=== PATIENT | male | born 1960 | race Caucasian/White ===

== ENCOUNTER 2020-02-07 14:24 | Inpatient (IN) ==
[2020-02-07] MEDS ORDERED: ONDANSETRON 4 MG/2 ML VIAL IV STA (15:01)
[2020-02-07 15:29] LABS: Basophils % 0.1 % (0.0-0.8); Eosinophils % 0.1 % (0.00-10.9); Hematocrit 43.4 VOL% (42.0-52.0); Hemoglobin 14.7 GM/DL (14.0-18.0); Immature Granulocytes Absolute 0.13 #; Lymphocytes # 0.7 10*3/uL (1.4-4.0); Lymphocytes % 5.4 % (21.2-54.2); Mean Corpuscular HGB Conc 33.9 GM/DL (32-36); Mean Corpuscular Volume 84.9 FL (87-102); Mean Platelet Volume 10.5 FL (9.6-12.0); Monocytes % 7.7 % (1.7-12.7); Neutrophils % 85.7 % (38.7-73.9); Platelet Count 167 T/CUMM (130-400); Red Blood Count 5.11 MC/CUMM (3.8-5.5); Red Cell Distribution Width 15.9 % (9.3-17.3); White Blood Count 12.6 T/CUMM (4-12)
[2020-02-07] MEDS ORDERED: LEVOFLOXACIN INJ 750 MG in PREMIX 1 EACH IV STA (15:54)
[2020-02-07 16:04] LABS: Albumin 3.7 G/DL (3.4-5.0); Bilirubin,Total 0.6 MG/DL (0.2-1.0); Calcium 8.9 MG/DL (8.5-10.1); Ferritin 665.5 ng/ml (26-388); Osmolality,Calculated 269.4 MOS/KG (273-304); Total Protein 8.5 G/DL (6.4-8.3)
[2020-02-07] MEDS ORDERED: SODIUM CHLORIDE 0.9% 1,000 ML IV STA (16:17)
[2020-02-07 16:42] LABS: ABG Base Excess -3.9 MMOL/L (-2.5-2.5); ABG Oxygen Saturation 90.1 % (95-100); ABG PCO2 32.2 MM HG (35-48); ABG PH 7.399 (7.35-7.45); ABG PO2 58.3 MM HG (80-95); ABG TCO2 17.3 MMOL/L (23-27)
[2020-02-07] MEDS ORDERED: ACETAMINOPHEN 325 MG TABLET PO PRN (18:02)
[2020-02-07] MEDS ORDERED: GLUCAGON 1 MG VIAL IM PRN (18:02)
[2020-02-07] MEDS ORDERED: DEXTROSE 50% 25 GM/50 ML VIAL IV PRN (18:02)
[2020-02-07] MEDS: ONDANSETRON 4 MG/2 ML VIAL IV PRN (18:55)
[2020-02-07 19:36] LABS: Band Neutrophils 1 % (0-10); Lymphocytes 6 % (20-55); Platelet Estimate Adequate; Segmented Neutrophils 89 % (50-85); Total Cells Counted 100
[2020-02-07 19:37] LABS: Anisocytosis Slight; Ovalocytes Few
[2020-02-07] MEDS: VANCOMYCIN INJ 1,500 MG in SODIUM CHLORIDE 0.9% 500 ML IV SCH (20:53)
[2020-02-07] MEDS: ENOXAPARIN 40 MG/0.4 ML SYRINGE SUBCUT SCH (21:25)
[2020-02-08 05:43] LABS: Basophils % 0.1 % (0.0-0.8); Eosinophils % 0.1 % (0.00-10.9); Hematocrit 36.2 VOL% (42.0-52.0); Immature Granulocytes % 1.1 %; Immature Granulocytes Absolute 0.09 #; Lymphocytes # 1.4 10*3/uL (1.4-4.0); Mean Corpuscular HGB Conc 34.5 GM/DL (32-36); Mean Corpuscular Volume 83.8 FL (87-102); Mean Platelet Volume 11.8 FL (9.6-12.0); Monocytes % 9.8 % (1.7-12.7); Neutrophils % 71.9 % (38.7-73.9); Platelet Count 141 T/CUMM (130-400); Red Blood Count 4.32 MC/CUMM (3.8-5.5); Red Cell Distribution Width 15.9 % (9.3-17.3)
[2020-02-08 05:44] LABS: Hemoglobin 12.5 GM/DL (14.0-18.0); White Blood Count 8.5 T/CUMM (4-12)
[2020-02-08 05:58] LABS: Albumin 2.8 G/DL (3.4-5.0); Bilirubin,Total 1.1 MG/DL (0.2-1.0); Calcium 8.1 MG/DL (8.5-10.1); Ferritin 538.3 ng/ml (26-388); Osmolality,Calculated 272.1 MOS/KG (273-304); Total Protein 6.8 G/DL (6.4-8.3)
[2020-02-08 06:07] LABS: Hypochromasia Slight; Microcytosis Slight; Platelet Estimate Adequate
[2020-02-08] MEDS: PANTOPRAZOLE 40 MG TABLET PO SCH (08:46)
[2020-02-08] MEDS: VANCOMYCIN INJ 1,500 MG in SODIUM CHLORIDE 0.9% 500 ML IV SCH ×2 (08:46→22:05)
[2020-02-08] MEDS: ONDANSETRON 4 MG/2 ML VIAL IV PRN (10:47)
[2020-02-08] MEDS: DEXAMETHASONE 4 MG TABLET PO SCH (11:57)
[2020-02-08] MEDS ORDERED: hydrOXYzine HCL 25 MG TABLET PO PRN (12:57)
[2020-02-08] MEDS: DIGOXIN 0.25 MG TABLET PO SCH (13:33)
[2020-02-08] MEDS: SERTRALINE 100 MG TABLET PO SCH (13:33)
[2020-02-08] MEDS: DESITIN 4OZ/NYSTATIN 15 GRAM MIXTURE PASTE TOP SCH ×2 (13:33→22:06)
[2020-02-08] MEDS ORDERED: LEVOFLOXACIN INJ 750 MG in PREMIX 1 EACH IV SCH (18:00)
[2020-02-08] MEDS: ENOXAPARIN 40 MG/0.4 ML SYRINGE SUBCUT SCH (22:05)
[2020-02-08] MEDS: FLUTICASONE/SALMETEROL 250-50 DISKUS 14 DOSE INH SCH (22:05)
[2020-02-08] MEDS: FERROUS GLUCONATE 324 MG TABLET PO SCH (22:05)
[2020-02-08] MEDS: FLUTICASONE 50 MCG NASAL SPRAY 16 GM BOTTLE BOTH NARES SCH (22:05)
[2020-02-08] MEDS: ALPRAZolam 0.5 MG TABLET PO SCH (22:06)
[2020-02-09 06:53] LABS: Basophils % 0.1 % (0.0-0.8); Hematocrit 34.6 VOL% (42.0-52.0); Hemoglobin 11.8 GM/DL (14.0-18.0); Immature Granulocytes % 1.2 %; Immature Granulocytes Absolute 0.08 #; Lymphocytes # 0.7 10*3/uL (1.4-4.0); Lymphocytes % 10.3 % (21.2-54.2); Mean Corpuscular HGB Conc 34.1 GM/DL (32-36); Mean Corpuscular Volume 83.2 FL (87-102); Mean Platelet Volume 11.2 FL (9.6-12.0); Monocytes % 9.6 % (1.7-12.7); Neutrophils % 78.8 % (38.7-73.9); Platelet Count 143 T/CUMM (130-400); Red Blood Count 4.16 MC/CUMM (3.8-5.5); Red Cell Distribution Width 15.8 % (9.3-17.3); White Blood Count 6.8 T/CUMM (4-12)
[2020-02-09 07:16] LABS: Calcium 8.5 MG/DL (8.5-10.1)
[2020-02-09] MEDS: FLUTICASONE 50 MCG NASAL SPRAY 16 GM BOTTLE BOTH NARES SCH ×2 (09:20→21:06)
[2020-02-09] MEDS: FLUTICASONE/SALMETEROL 250-50 DISKUS 14 DOSE INH SCH ×2 (09:20→21:06)
[2020-02-09] MEDS: VANCOMYCIN INJ 1,500 MG in SODIUM CHLORIDE 0.9% 500 ML IV SCH ×2 (09:20→21:05)
[2020-02-09] MEDS: ALPRAZolam 0.5 MG TABLET PO SCH ×2 (09:20→21:06)
[2020-02-09] MEDS: FERROUS GLUCONATE 324 MG TABLET PO SCH ×2 (09:20→21:06)
[2020-02-09] MEDS: SERTRALINE 100 MG TABLET PO SCH (09:20)
[2020-02-09] MEDS: PANTOPRAZOLE 40 MG TABLET PO SCH ×2 (09:20→10:56)
[2020-02-09] MEDS: DESITIN 4OZ/NYSTATIN 15 GRAM MIXTURE PASTE TOP SCH ×2 (09:20→21:06)
[2020-02-09] MEDS: DEXAMETHASONE 4 MG TABLET PO SCH (09:20)
[2020-02-09] MEDS: MONTELUKAST 10 MG TABLET PO SCH (09:20)
[2020-02-09] MEDS ORDERED: FLUCONAZOLE 200 MG TABLET PO ONE (11:22)
[2020-02-09] MEDS: DIGOXIN 0.25 MG TABLET PO SCH (13:57)
[2020-02-09] MEDS: ENOXAPARIN 40 MG/0.4 ML SYRINGE SUBCUT SCH (21:06)
[2020-02-10 06:43] LABS: Basophils % 0.1 % (0.0-0.8); Hematocrit 34.6 VOL% (42.0-52.0); Hemoglobin 11.6 GM/DL (14.0-18.0); Immature Granulocytes % 1.2 %; Immature Granulocytes Absolute 0.09 #; Lymphocytes # 0.6 10*3/uL (1.4-4.0); Mean Corpuscular HGB Conc 33.5 GM/DL (32-36); Mean Corpuscular Volume 83.6 FL (87-102); Mean Platelet Volume 11.4 FL (9.6-12.0); Monocytes % 6.7 % (1.7-12.7); Platelet Count 169 T/CUMM (130-400); Red Blood Count 4.14 MC/CUMM (3.8-5.5); Red Cell Distribution Width 15.9 % (9.3-17.3); White Blood Count 7.5 T/CUMM (4-12)
[2020-02-10 08:22] LABS: Calcium 8.4 MG/DL (8.5-10.1); Osmolality,Calculated 275.8 MOS/KG (273-304)
[2020-02-10] MEDS: DEXAMETHASONE 4 MG TABLET PO SCH (09:18)
[2020-02-10] MEDS: PANTOPRAZOLE 40 MG TABLET PO SCH ×2 (09:18→09:19)
[2020-02-10] MEDS: FLUTICASONE/SALMETEROL 250-50 DISKUS 14 DOSE INH SCH ×2 (09:18→21:44)
[2020-02-10] MEDS: VANCOMYCIN INJ 1,500 MG in SODIUM CHLORIDE 0.9% 500 ML IV SCH ×2 (09:18→21:44)
[2020-02-10] MEDS: ALPRAZolam 0.5 MG TABLET PO SCH ×2 (09:18→21:46)
[2020-02-10] MEDS: SERTRALINE 100 MG TABLET PO SCH (09:19)
[2020-02-10] MEDS: FLUTICASONE 50 MCG NASAL SPRAY 16 GM BOTTLE BOTH NARES SCH ×2 (09:19→21:46)
[2020-02-10] MEDS: FERROUS GLUCONATE 324 MG TABLET PO SCH ×2 (09:19→21:46)
[2020-02-10] MEDS: DESITIN 4OZ/NYSTATIN 15 GRAM MIXTURE PASTE TOP SCH ×2 (09:19→21:46)
[2020-02-10] MEDS: MONTELUKAST 10 MG TABLET PO SCH (09:19)
[2020-02-10] MEDS ORDERED: FLUCONAZOLE 200 MG TABLET PO ONE (11:00)
[2020-02-10] MEDS: DIGOXIN 0.25 MG TABLET PO SCH (12:19)
[2020-02-10] MEDS: ENOXAPARIN 40 MG/0.4 ML SYRINGE SUBCUT SCH (21:45)
[2020-02-11 07:02] LABS: Basophils % 0.2 % (0.0-0.8); Hematocrit 32.6 VOL% (42.0-52.0); Hemoglobin 11.1 GM/DL (14.0-18.0); Immature Granulocytes % 1.5 %; Lymphocytes # 0.7 10*3/uL (1.4-4.0); Lymphocytes % 11.1 % (21.2-54.2); Mean Corpuscular Volume 84.2 FL (87-102); Mean Platelet Volume 11.7 FL (9.6-12.0); Monocytes % 8.9 % (1.7-12.7); Neutrophils % 78.3 % (38.7-73.9); Platelet Count 161 T/CUMM (130-400); Red Blood Count 3.87 MC/CUMM (3.8-5.5); White Blood Count 6.7 T/CUMM (4-12)
[2020-02-11 07:04] LABS: Calcium 8.2 MG/DL (8.5-10.1); Osmolality,Calculated 276.7 MOS/KG (273-304)
[2020-02-11] MEDS: MONTELUKAST 10 MG TABLET PO SCH (09:18)
[2020-02-11] MEDS: DESITIN 4OZ/NYSTATIN 15 GRAM MIXTURE PASTE TOP SCH ×2 (09:18→20:55)
[2020-02-11] MEDS: FLUTICASONE 50 MCG NASAL SPRAY 16 GM BOTTLE BOTH NARES SCH ×2 (09:18→20:55)
[2020-02-11] MEDS: DEXAMETHASONE 4 MG TABLET PO SCH (09:18)
[2020-02-11] MEDS: VANCOMYCIN INJ 1,500 MG in SODIUM CHLORIDE 0.9% 500 ML IV SCH ×2 (09:18→20:55)
[2020-02-11] MEDS: ALPRAZolam 0.5 MG TABLET PO SCH ×2 (09:18→20:54)
[2020-02-11] MEDS: FERROUS GLUCONATE 324 MG TABLET PO SCH ×2 (09:18→20:54)
[2020-02-11] MEDS: PANTOPRAZOLE 40 MG TABLET PO SCH ×2 (09:18→09:34)
[2020-02-11] MEDS: FLUTICASONE/SALMETEROL 250-50 DISKUS 14 DOSE INH SCH ×2 (09:18→20:55)
[2020-02-11] MEDS: SERTRALINE 100 MG TABLET PO SCH (09:18)
[2020-02-11] MEDS ORDERED: FLUCONAZOLE 200 MG TABLET PO ONE (10:47)
[2020-02-11] MEDS: DIGOXIN 0.25 MG TABLET PO SCH (11:59)
[2020-02-11 12:47] LABS: Lymphocytes 10 % (20-55); Platelet Estimate Adequate; Segmented Neutrophils 83 % (50-85); Total Cells Counted 100
[2020-02-11] MEDS: LEVOFLOXACIN 500 MG TABLET PO SCH (13:07)
[2020-02-11] MEDS: ENOXAPARIN 40 MG/0.4 ML SYRINGE SUBCUT SCH (20:54)
[2020-02-12 06:20] LABS: Calcium 8.3 MG/DL (8.5-10.1); Osmolality,Calculated 279.5 MOS/KG (273-304)
[2020-02-12] MEDS: PANTOPRAZOLE 40 MG TABLET PO SCH ×2 (08:31→09:12)
[2020-02-12] MEDS: LEVOFLOXACIN 500 MG TABLET PO SCH (08:31)
[2020-02-12] MEDS: ALPRAZolam 0.5 MG TABLET PO SCH ×2 (08:31→21:03)
[2020-02-12] MEDS: SERTRALINE 100 MG TABLET PO SCH (08:32)
[2020-02-12] MEDS: DESITIN 4OZ/NYSTATIN 15 GRAM MIXTURE PASTE TOP SCH ×2 (08:32→21:03)
[2020-02-12] MEDS: FLUTICASONE/SALMETEROL 250-50 DISKUS 14 DOSE INH SCH ×2 (08:32→21:03)
[2020-02-12] MEDS: MONTELUKAST 10 MG TABLET PO SCH (08:32)
[2020-02-12] MEDS: DEXAMETHASONE 4 MG TABLET PO SCH (08:32)
[2020-02-12] MEDS: FERROUS GLUCONATE 324 MG TABLET PO SCH ×2 (08:32→21:03)
[2020-02-12] MEDS: VANCOMYCIN INJ 1,500 MG in SODIUM CHLORIDE 0.9% 500 ML IV SCH (09:11)
[2020-02-12] MEDS: FLUTICASONE 50 MCG NASAL SPRAY 16 GM BOTTLE BOTH NARES SCH ×2 (09:12→21:03)
[2020-02-12] MEDS ORDERED: TUBERCULIN SKIN TEST 0.1 ML SYRINGE INTRADERM ONE (11:58)
[2020-02-12] MEDS: DIGOXIN 0.25 MG TABLET PO SCH (14:51)
[2020-02-12] MEDS: ENOXAPARIN 40 MG/0.4 ML SYRINGE SUBCUT SCH (21:03)
[2020-02-13] MEDS: LEVOFLOXACIN 500 MG TABLET PO SCH (08:31)
[2020-02-13] MEDS: ALPRAZolam 0.5 MG TABLET PO SCH (08:31)
[2020-02-13] MEDS: DEXAMETHASONE 4 MG TABLET PO SCH (08:31)
[2020-02-13] MEDS: PANTOPRAZOLE 40 MG TABLET PO SCH ×2 (08:31→08:32)
[2020-02-13] MEDS: SERTRALINE 100 MG TABLET PO SCH (08:31)
[2020-02-13] MEDS: FERROUS GLUCONATE 324 MG TABLET PO SCH (08:31)
[2020-02-13] MEDS: MONTELUKAST 10 MG TABLET PO SCH (08:31)
[2020-02-13] MEDS: FLUTICASONE/SALMETEROL 250-50 DISKUS 14 DOSE INH SCH (08:32)
[2020-02-13] MEDS: FLUTICASONE 50 MCG NASAL SPRAY 16 GM BOTTLE BOTH NARES SCH (08:32)
[2020-02-13] MEDS: DESITIN 4OZ/NYSTATIN 15 GRAM MIXTURE PASTE TOP SCH (08:32)
[2020-02-13] MEDS ORDERED: INFLUENZA VIRUS VACCINE 0.5 ML SYRINGE IM ONE (11:25)
[2020-02-13] MEDS ORDERED: PNEUMOCOCCAL VACCINE (23 VALENT) 0.5 ML VIAL IM ONE (11:28)
[2020-02-13] MEDS ORDERED: ACETAMINOPHEN 500 MG TABLET PO ONE (11:52)
[2020-02-13 12:20] VITALS: BP 144/59
[2020-02-13] MEDS: DIGOXIN 0.25 MG TABLET PO SCH (13:02)
[2020-02-13] MEDS ORDERED: CLOTRIMAZOLE/BETAMETHASONE CREAM 15 GM TUBE TOP SCH (21:00)
== END 2020-02-13 14:30 | DRG 871 ==
LOC: EDUNIT# → EDBD → N.ED 14:24 → SUATTDRO 18:02 → N.EDINP 18:02 → N.2E 19:42
PROVIDERS: ADMIT Internal Medicine; ATTEND Internal Medicine

== ENCOUNTER 2020-07-02 16:26 | Inpatient (IN) ==
[2020-07-02] MEDS ORDERED: SODIUM CHLORIDE 0.9% 1,000 ML IV STA (16:54)
[2020-07-02 17:09] LABS: Basophils # 0.1 10*3/uL (0.0-0.2); Basophils % 0.5 % (0.0-0.8); Eosinophils # 0.3 10*3/uL (0.0-0.87); Eosinophils % 1.2 % (0.00-10.9); Hematocrit 37.9 VOL% (42.0-52.0); Hemoglobin 12.1 GM/DL (14.0-18.0); Immature Granulocytes % 5.2 %; Immature Granulocytes Absolute 1.12 #; Lymphocytes # 2.8 10*3/uL (1.4-4.0); Lymphocytes % 12.9 % (21.2-54.2); Mean Corpuscular HGB Conc 31.9 GM/DL (32-36); Mean Corpuscular Volume 94.8 FL (87-102); Mean Platelet Volume 10.5 FL (9.6-12.0); Monocytes % 8.1 % (1.7-12.7); Neutrophils % 72.1 % (38.7-73.9); Platelet Count 246 T/CUMM (130-400); Red Cell Distribution Width 14.3 % (9.3-17.3); White Blood Count 21.4 T/CUMM (4-12)
[2020-07-02] MEDS ORDERED: VANCOMYCIN INJ 1,000 MG in SODIUM CHLORIDE 0.9% 250 ML IV STA (17:25)
[2020-07-02 17:26] LABS: Alanine Aminotransferase 13 U/L (16-61); Albumin 3.4 G/DL (3.4-5.0); Alkaline Phosphatase 96 U/L (45-117); Aspartate Amino Transferase 15 U/L (0-37); Bilirubin,Total < 0.39 MG/DL (0.2-1.0); Blood Urea Nitrogen 52 MG/DL (7-18); Calcium 8.8 MG/DL (8.5-10.1); Carbon Dioxide 21 MMOL/L (21-32); Estimated Glom Filtration Rate 16 ML/MIN; Glucose 87 MG/DL (74-106); Osmolality,Calculated 280.2 MOS/KG (273-304); Potassium 4.7 MMOL/L (3.5-5.1); Sodium 134 MMOL/L (136-145); Total Protein 7.3 G/DL (6.4-8.2)
[2020-07-02] MEDS ORDERED: SODIUM CHLORIDE 0.9% 3,100 ML IV ONE (17:37)
[2020-07-02 17:52] LABS: Band Neutrophils 1 % (0-10); Eosinophils 1 % (0-10); Lymphocytes 10 % (20-55); Platelet Estimate Normal; Segmented Neutrophils 80 % (50-85); Total Cells Counted 100
[2020-07-02] MEDS ORDERED: GLUCAGON 1 MG VIAL IM PRN (18:00)
[2020-07-02] MEDS ORDERED: ALBUTEROL 2.5 MG/3 ML NEB RESP TX PRN (18:00)
[2020-07-02] MEDS ORDERED: ONDANSETRON 4 MG/2 ML VIAL IV PRN (18:00)
[2020-07-02] MEDS ORDERED: DEXTROSE 50% 25 GM/50 ML VIAL IV PRN (18:00)
[2020-07-02] MEDS ORDERED: PANTOPRAZOLE 40 MG VIAL IV SCH (18:00)
[2020-07-02] MEDS ORDERED: MORPHINE 4 MG/1 ML VIAL IV PRN (18:00)
[2020-07-02] MEDS ORDERED: HYDROCORTISONE 100 MG VIAL IV STA (18:43)
[2020-07-02] MEDS ORDERED: FLUCONAZOLE INJ 400 MG/200 ML PREMIX IV ONE (21:00)
[2020-07-02] MEDS: LACTATED RINGERS 1,000 ML IV SCH (21:05)
[2020-07-02] MEDS: metroNIDAZOLE INJ 500 MG in PREMIX 1 EACH IV SCH (21:10)
[2020-07-02] MEDS: ENOXAPARIN 30 MG/0.3 ML SYRINGE SUBCUT SCH (21:22)
[2020-07-02] MEDS: MEROPENEM 500 MG in SODIUM CHLORIDE 0.9% 100 ML IV SCH (21:22)
[2020-07-02] MEDS: INSULIN LISPRO 100 UNIT/ML SUBCUT SCH (21:31)
[2020-07-02] MEDS: NOREPINEPHRINE 8 MG in SODIUM CHLORIDE 0.9% 242 ML IV SCH (22:26)
[2020-07-02 23:24] LABS: Bilirubin,Urine Negative (Negative); Blood, Urine Negative (Negative); Glucose,Urine (UA) Negative (Negative); Hyaline Casts,Urine 18 /LPF (0-3); Ketones,Urine Negative (Negative); Mucus,Urine Occasional /LPF (Occasional); Nitrite,Urine Negative (Negative); Protein,Urine Negative; RBC,Urine 1 /HPF (0-4); Squamous Epithelial Cell,Urine Occasional /HPF (0-10); Urine Appearance Slightly Hazy (Clear); Urine Color Yellow (Yellow); Urine Specific Gravity 1.008 (1.001-1.035); Urine Urobilinogen < 2.0 EU/DL (0.2-1.0)
[2020-07-02] MEDS: MUPIROCIN 2% OINT 22 GM TUBE TOP SCH (23:36)
[2020-07-03] MEDS: LACTATED RINGERS 1,000 ML IV SCH ×3 (00:07→06:59)
[2020-07-03] MEDS: INSULIN LISPRO 100 UNIT/ML SUBCUT SCH ×7 (00:07→23:48)
[2020-07-03] MEDS: metroNIDAZOLE INJ 500 MG in PREMIX 1 EACH IV SCH ×4 (02:50→20:55)
[2020-07-03] MEDS ORDERED: HYDROCORTISONE 100 MG VIAL IV SCH (03:00)
[2020-07-03 05:01] LABS: Basophils # 0.1 10*3/uL (0.0-0.2); Basophils % 0.3 % (0.0-0.8); Eosinophils % 0.1 % (0.00-10.9); Hematocrit 33.1 VOL% (42.0-52.0); Hemoglobin 10.5 GM/DL (14.0-18.0); Immature Granulocytes % 4.4 %; Immature Granulocytes Absolute 0.63 #; Lymphocytes # 0.6 10*3/uL (1.4-4.0); Lymphocytes % 4.2 % (21.2-54.2); Mean Corpuscular HGB Conc 31.7 GM/DL (32-36); Mean Corpuscular Volume 95.4 FL (87-102); Mean Platelet Volume 10.3 FL (9.6-12.0); Monocytes % 2.4 % (1.7-12.7); Neutrophils % 88.6 % (38.7-73.9); Platelet Count 175 T/CUMM (130-400); Red Blood Count 3.47 MC/CUMM (3.8-5.5); Red Cell Distribution Width 14.1 % (9.3-17.3); White Blood Count 14.4 T/CUMM (4-12)
[2020-07-03 05:14] LABS: PT Patient Result 11.4 SECS (9.8-11.9)
[2020-07-03 05:26] LABS: Hypochromasia Slight; Lymphocytes 2 % (20-55); Microcytosis Slight; Platelet Estimate Adequate; Segmented Neutrophils 96 % (50-85); Total Cells Counted 100
[2020-07-03 05:28] LABS: Albumin 2.6 G/DL (3.4-5.0); Bilirubin,Total 0.7 MG/DL (0.2-1.0); Calcium 8.3 MG/DL (8.5-10.1); Osmolality,Calculated 287.7 MOS/KG (273-304); Potassium 5.4 MMOL/L (3.5-5.1); Thyroid Stimulating Hormone 0.594 uIU/ml (0.358-3.74)
[2020-07-03] MEDS: FLUCONAZOLE INJ 200 MG/100 ML PREMIX IV SCH (08:30)
[2020-07-03] MEDS: HYDROCORTISONE 10 MG TABLET PO SCH ×2 (08:31→20:27)
[2020-07-03] MEDS: MUPIROCIN 2% OINT 22 GM TUBE TOP SCH ×3 (08:31→20:27)
[2020-07-03] MEDS: PANTOPRAZOLE 40 MG TABLET PO SCH (08:31)
[2020-07-03] MEDS: DIGOXIN 0.25 MG TABLET PO SCH (08:31)
[2020-07-03] MEDS: FLUTICASONE/SALMETEROL 250-50 DISKUS 14 DOSE INH SCH ×2 (08:32→20:27)
[2020-07-03] MEDS: NOREPINEPHRINE 8 MG in SODIUM CHLORIDE 0.9% 242 ML IV SCH (18:06)
[2020-07-03] MEDS: MEROPENEM 500 MG in SODIUM CHLORIDE 0.9% 100 ML IV SCH (20:15)
[2020-07-03] MEDS: ENOXAPARIN 30 MG/0.3 ML SYRINGE SUBCUT SCH (20:27)
[2020-07-03] MEDS: ALPRAZolam 0.5 MG TABLET PO SCH (20:28)
[2020-07-03] MEDS: SERTRALINE 100 MG TABLET PO SCH (20:28)
[2020-07-04] MEDS: metroNIDAZOLE INJ 500 MG in PREMIX 1 EACH IV SCH ×4 (02:30→20:54)
[2020-07-04] MEDS: INSULIN LISPRO 100 UNIT/ML SUBCUT SCH ×2 (03:43→08:18)
[2020-07-04 04:30] LABS: Basophils % 0.2 % (0.0-0.8); Eosinophils # 0.1 10*3/uL (0.0-0.87); Eosinophils % 1.1 % (0.00-10.9); Hematocrit 31.3 VOL% (42.0-52.0); Hemoglobin 9.9 GM/DL (14.0-18.0); Immature Granulocytes % 3.9 %; Immature Granulocytes Absolute 0.42 #; Lymphocytes % 9.5 % (21.2-54.2); Mean Corpuscular HGB Conc 31.6 GM/DL (32-36); Mean Corpuscular Volume 95.4 FL (87-102); Mean Platelet Volume 10.4 FL (9.6-12.0); Monocytes % 6.7 % (1.7-12.7); Neutrophils % 78.6 % (38.7-73.9); Platelet Count 186 T/CUMM (130-400); Red Blood Count 3.28 MC/CUMM (3.8-5.5); Red Cell Distribution Width 14.1 % (9.3-17.3); White Blood Count 10.7 T/CUMM (4-12)
[2020-07-04 04:53] LABS: Calcium 8.2 MG/DL (8.5-10.1); Osmolality,Calculated 283.5 MOS/KG (273-304); Potassium 3.9 MMOL/L (3.5-5.1)
[2020-07-04] MEDS: DIGOXIN 0.25 MG TABLET PO SCH (08:19)
[2020-07-04] MEDS: PANTOPRAZOLE 40 MG TABLET PO SCH (08:19)
[2020-07-04] MEDS: HYDROCORTISONE 10 MG TABLET PO SCH ×2 (08:19→20:37)
[2020-07-04] MEDS: FLUTICASONE/SALMETEROL 250-50 DISKUS 14 DOSE INH SCH ×2 (08:19→20:35)
[2020-07-04] MEDS: MUPIROCIN 2% OINT 22 GM TUBE TOP SCH (08:25)
[2020-07-04] MEDS: FLUCONAZOLE INJ 200 MG/100 ML PREMIX IV SCH (10:13)
[2020-07-04] MEDS: HYDROCORTISONE 2.5% CREAM 30 GM TUBE TOP SCH (20:36)
[2020-07-04] MEDS: ZINC OXIDE PASTE 113 GM TUBE TOP SCH (20:36)
[2020-07-04] MEDS: KETOCONAZOLE 2% CREAM 30 GM TUBE TOP SCH (20:36)
[2020-07-04] MEDS: ALPRAZolam 0.5 MG TABLET PO SCH (20:37)
[2020-07-04] MEDS: SERTRALINE 100 MG TABLET PO SCH (20:37)
[2020-07-04] MEDS: MEROPENEM 500 MG in SODIUM CHLORIDE 0.9% 100 ML IV SCH (20:38)
[2020-07-04] MEDS: ENOXAPARIN 30 MG/0.3 ML SYRINGE SUBCUT SCH (20:51)
[2020-07-05] MEDS: metroNIDAZOLE INJ 500 MG in PREMIX 1 EACH IV SCH ×2 (02:26→08:30)
[2020-07-05 04:42] LABS: Calcium 8.4 MG/DL (8.5-10.1); Osmolality,Calculated 280.4 MOS/KG (273-304); Potassium 3.7 MMOL/L (3.5-5.1)
[2020-07-05] MEDS: FLUTICASONE/SALMETEROL 250-50 DISKUS 14 DOSE INH SCH (08:25)
[2020-07-05] MEDS: DIGOXIN 0.25 MG TABLET PO SCH (08:25)
[2020-07-05] MEDS: PANTOPRAZOLE 40 MG TABLET PO SCH (08:25)
[2020-07-05] MEDS: FLUCONAZOLE INJ 200 MG/100 ML PREMIX IV SCH (08:30)
[2020-07-05] MEDS: KETOCONAZOLE 2% CREAM 30 GM TUBE TOP SCH (09:35)
[2020-07-05] MEDS: ZINC OXIDE PASTE 113 GM TUBE TOP SCH (09:35)
[2020-07-05] MEDS: HYDROCORTISONE 2.5% CREAM 30 GM TUBE TOP SCH (09:35)
[2020-07-05 12:32] VITALS: BP 123/87
[2020-07-05 20:56] LABS: Herpes Source GROIN
== END 2020-07-05 13:05 | disposition home or self-care (01) | DRG 871 ==
LOC: EDUNIT# → EDBD → N.ED 16:26 → SUATTDRO 18:00 → N.EDINP 18:00 → N.ICU 19:17
PROVIDERS: ADMIT Internal Medicine; ATTEND Internal Medicine Geriatric Medicine

== ENCOUNTER 2021-02-05 13:32 | Inpatient (IN) ==
[2021-02-05 14:16] LABS: Basophils # 0.1 10*3/uL (0.0-0.2); Basophils % 0.4 % (0.0-0.8); Eosinophils # 0.1 10*3/uL (0.0-0.87); Eosinophils % 0.8 % (0.00-10.9); Hematocrit 41.1 VOL% (42.0-52.0); Hemoglobin 13.8 GM/DL (14.0-18.0); Immature Granulocytes % 4.5 %; Immature Granulocytes Absolute 0.71 #; Lymphocytes # 1.7 10*3/uL (1.4-4.0); Lymphocytes % 10.5 % (21.2-54.2); Mean Corpuscular HGB Conc 33.6 GM/DL (32-36); Mean Corpuscular Volume 85.6 FL (87-102); Mean Platelet Volume 10.2 FL (9.6-12.0); Monocytes % 7.5 % (1.7-12.7); Neutrophils % 76.3 % (38.7-73.9); Platelet Count 329 T/CUMM (130-400); Red Cell Distribution Width 14.7 % (9.3-17.3); White Blood Count 15.9 T/CUMM (4-12)
[2021-02-05 14:37] LABS: Albumin 3.9 G/DL (3.4-5.0); Bilirubin,Total 0.6 MG/DL (0.20-1.00); Calcium 9.1 MG/DL (8.5-10.1); Osmolality,Calculated 271.2 MOS/KG (273-304); Potassium 4.8 MMOL/L (3.5-5.1); Total Protein 7.7 G/DL (6.4-8.2)
[2021-02-05 14:39] LABS: Band Neutrophils 3 % (0-10); Lymphocytes 11 % (20-55); Metamyelocytes 2 %; Myelocytes 1 %; Segmented Neutrophils 78 % (50-85); Total Cells Counted 100
[2021-02-05 14:40] LABS: Anisocytosis Slight; Microcytosis Slight; Platelet Estimate Normal
[2021-02-05] MEDS ORDERED: SODIUM CHLORIDE 0.9% 500 ML IV STA (16:53)
[2021-02-05] MEDS ORDERED: GLUCAGON 1 MG VIAL IM PRN (17:54)
[2021-02-05] MEDS ORDERED: ALBUTEROL 2.5 MG/3 ML NEB RESP TX PRN (17:54)
[2021-02-05] MEDS ORDERED: ALUMINUM/MAGNES/SIMETH MAX STR 30 ML UDCUP PO PRN (17:54)
[2021-02-05] MEDS ORDERED: DOCUSATE SODIUM 100 MG CAPSULE PO PRN (17:54)
[2021-02-05] MEDS ORDERED: SODIUM CHLORIDE 0.9% 1,000 ML IV SCH (18:00)
[2021-02-05] MEDS ORDERED: DEXTROSE 50% 25 GM/50 ML SYRINGE IV PRN (18:25)
[2021-02-05 19:27] LABS: Bilirubin,Urine Negative (Negative); Blood, Urine Negative (Negative); Glucose,Urine (UA) Negative (Negative); Hyaline Casts,Urine 31 /LPF (0-3); Ketones,Urine Negative (Negative); Mucus,Urine Occasional /LPF (Occasional); Nitrite,Urine Negative (Negative); Protein,Urine Negative; RBC,Urine 2 /HPF (0-4); Urine Appearance CLEAR (Clear); Urine Color Yellow (Yellow); Urine Specific Gravity 1.006 (1.001-1.035); Urine Urobilinogen < 2.0 EU/DL (0.2-1.0)
[2021-02-05] MEDS: ALBUTEROL/IPRATROPIUM 3 ML NEB RESP TX SCH (19:39)
[2021-02-05] MEDS: ENOXAPARIN 40 MG/0.4 ML SYRINGE SUBCUT SCH (20:09)
[2021-02-06] MEDS: ALBUTEROL/IPRATROPIUM 3 ML NEB RESP TX SCH ×5 (00:32→20:04)
[2021-02-06] MEDS ORDERED: INFLUENZA VIRUS VACCINE 0.5 ML SYRINGE IM ONE (05:55)
[2021-02-06 06:53] LABS: Basophils # 0.1 10*3/uL (0.0-0.2); Basophils % 0.7 % (0.0-0.8); Eosinophils # 0.1 10*3/uL (0.0-0.87); Hematocrit 36.9 VOL% (42.0-52.0); Immature Granulocytes Absolute 0.55 #; Lymphocytes # 2.7 10*3/uL (1.4-4.0); Lymphocytes % 20.1 % (21.2-54.2); Mean Corpuscular HGB Conc 32.5 GM/DL (32-36); Mean Corpuscular Volume 88.7 FL (87-102); Mean Platelet Volume 10.6 FL (9.6-12.0); Monocytes % 9.3 % (1.7-12.7); Neutrophils % 64.9 % (38.7-73.9); Platelet Count 287 T/CUMM (130-400); Red Blood Count 4.16 MC/CUMM (3.8-5.5); Red Cell Distribution Width 14.8 % (9.3-17.3); White Blood Count 13.6 T/CUMM (4-12)
[2021-02-06 07:19] LABS: Hypochromasia Slight; Lymphocytes 21 % (20-55); Microcytosis Slight; Platelet Estimate Adequate; Segmented Neutrophils 74 % (50-85); Total Cells Counted 100
[2021-02-06 07:31] LABS: Calcium 8.5 MG/DL (8.5-10.1); Risk Ratio 5.09; Thyroid Stimulating Hormone 1.9 uIU/ml (0.358-3.74); VLDL Cholesterol 44.4 MG/DL
[2021-02-06] MEDS ORDERED: HydrOXYzine PAMOATE 25 MG CAPSULE PO PRN (07:40)
[2021-02-06] MEDS: carvediloL 3.125 MG TABLET PO SCH (08:33)
[2021-02-06] MEDS: PANTOPRAZOLE 40 MG TABLET PO SCH ×2 (08:33→16:38)
[2021-02-06] MEDS: LOSARTAN 25 MG TABLET PO SCH (08:33)
[2021-02-06] MEDS: FERROUS GLUCONATE 324 MG TABLET PO SCH ×2 (08:33→16:38)
[2021-02-06] MEDS: MONTELUKAST 10 MG TABLET PO SCH (08:33)
[2021-02-06] MEDS: ALPRAZolam 0.5 MG TABLET PO SCH ×2 (08:33→22:31)
[2021-02-06] MEDS ORDERED: ALBUTEROL 2.5 MG/3 ML NEB RESP TX SCH (09:00)
[2021-02-06] MEDS ORDERED: PANTOPRAZOLE 40 MG TABLET PO SCH (09:00)
[2021-02-06] MEDS ORDERED: DIGOXIN 0.125 MG TABLET PO SCH (09:00)
[2021-02-06] MEDS ORDERED: MONTELUKAST 10 MG TABLET PO SCH (09:00)
[2021-02-06] MEDS: POTASSIUM CHLORIDE 10 MEQ TABLET PO SCH (11:36)
[2021-02-06] MEDS: MEROPENEM 500 MG in SODIUM CHLORIDE 0.9% 100 ML IV SCH ×2 (11:36→17:52)
[2021-02-06] MEDS: DIGOXIN 0.125 MG TABLET PO SCH (11:37)
[2021-02-06] MEDS ORDERED: FUROSEMIDE 40 MG TABLET PO SCH (16:00)
[2021-02-06] MEDS: GABAPENTIN 100 MG CAPSULE PO SCH ×2 (16:38→22:31)
[2021-02-06] MEDS: ENOXAPARIN 40 MG/0.4 ML SYRINGE SUBCUT SCH (17:52)
[2021-02-06] MEDS: SERTRALINE 25 MG TABLET PO SCH (22:31)
[2021-02-07] MEDS: ALBUTEROL/IPRATROPIUM 3 ML NEB RESP TX SCH ×2 (00:55→08:08)
[2021-02-07] MEDS: MEROPENEM 500 MG in SODIUM CHLORIDE 0.9% 100 ML IV SCH ×3 (01:44→17:37)
[2021-02-07 06:11] LABS: Basophils # 0.1 10*3/uL (0.0-0.2); Basophils % 0.8 % (0.0-0.8); Eosinophils # 0.2 10*3/uL (0.0-0.87); Eosinophils % 1.9 % (0.00-10.9); Hematocrit 35.5 VOL% (42.0-52.0); Hemoglobin 11.6 GM/DL (14.0-18.0); Immature Granulocytes % 5.3 %; Immature Granulocytes Absolute 0.52 #; Lymphocytes # 2.1 10*3/uL (1.4-4.0); Lymphocytes % 21.8 % (21.2-54.2); Mean Corpuscular HGB Conc 32.7 GM/DL (32-36); Mean Platelet Volume 10.3 FL (9.6-12.0); Monocytes % 9.5 % (1.7-12.7); Neutrophils % 60.7 % (38.7-73.9); Platelet Count 250 T/CUMM (130-400); Red Blood Count 3.99 MC/CUMM (3.8-5.5); Red Cell Distribution Width 14.8 % (9.3-17.3); White Blood Count 9.8 T/CUMM (4-12)
[2021-02-07 06:28] LABS: Calcium 9.1 MG/DL (8.5-10.1); Osmolality,Calculated 277.7 MOS/KG (273-304)
[2021-02-07 06:41] LABS: Anisocytosis 1+; Atypical Lymphocytes Few; Band Neutrophils 5 % (0-10); Eosinophils 2 % (0-10); Lymphocytes 27 % (20-55); Platelet Estimate Normal; Segmented Neutrophils 60 % (50-85); Total Cells Counted 100
[2021-02-07] MEDS: ALPRAZolam 0.5 MG TABLET PO SCH ×2 (08:15→20:26)
[2021-02-07] MEDS: FERROUS GLUCONATE 324 MG TABLET PO SCH ×2 (08:15→16:51)
[2021-02-07] MEDS: carvediloL 3.125 MG TABLET PO SCH (08:15)
[2021-02-07] MEDS: POTASSIUM CHLORIDE 10 MEQ TABLET PO SCH (08:15)
[2021-02-07] MEDS: GABAPENTIN 100 MG CAPSULE PO SCH ×3 (08:15→20:26)
[2021-02-07] MEDS: MONTELUKAST 10 MG TABLET PO SCH (08:15)
[2021-02-07] MEDS: LOSARTAN 25 MG TABLET PO SCH (08:16)
[2021-02-07] MEDS: PANTOPRAZOLE 40 MG TABLET PO SCH ×2 (08:16→16:50)
[2021-02-07] MEDS: DIGOXIN 0.125 MG TABLET PO SCH (08:16)
[2021-02-07] MEDS ORDERED: IPRATROPIUM 500 MCG/2.5 ML NEB RESP TX PRN (09:24)
[2021-02-07] MEDS: IPRATROPIUM 500 MCG/2.5 ML NEB RESP TX SCH ×2 (14:00→23:55)
[2021-02-07] MEDS: ENOXAPARIN 40 MG/0.4 ML SYRINGE SUBCUT SCH (17:36)
[2021-02-07] MEDS: SERTRALINE 25 MG TABLET PO SCH (20:26)
[2021-02-07] MEDS: ATORVASTATIN 40 MG TABLET PO SCH (20:30)
[2021-02-07] MEDS: ACETAMINOPHEN 325 MG TABLET PO PRN (22:53)
[2021-02-08] MEDS: MEROPENEM 500 MG in SODIUM CHLORIDE 0.9% 100 ML IV SCH ×3 (02:45→19:10)
[2021-02-08] MEDS: ACETAMINOPHEN 325 MG TABLET PO PRN ×2 (04:06→20:40)
[2021-02-08 05:36] LABS: Basophils # 0.1 10*3/uL (0.0-0.2); Basophils % 0.5 % (0.0-0.8); Eosinophils # 0.2 10*3/uL (0.0-0.87); Eosinophils % 1.9 % (0.00-10.9); Hemoglobin 12.2 GM/DL (14.0-18.0); Immature Granulocytes % 5.1 %; Immature Granulocytes Absolute 0.58 #; Lymphocytes # 2.2 10*3/uL (1.4-4.0); Lymphocytes % 19.3 % (21.2-54.2); Mean Corpuscular Volume 88.1 FL (87-102); Mean Platelet Volume 10.2 FL (9.6-12.0); Monocytes % 8.9 % (1.7-12.7); Neutrophils % 64.3 % (38.7-73.9); Platelet Count 279 T/CUMM (130-400); Red Cell Distribution Width 14.5 % (9.3-17.3); White Blood Count 11.5 T/CUMM (4-12)
[2021-02-08 06:11] LABS: Calcium 8.8 MG/DL (8.5-10.1); Osmolality,Calculated 275.8 MOS/KG (273-304); Potassium 4.3 MMOL/L (3.5-5.1)
[2021-02-08 06:12] LABS: Albumin 3.4 G/DL (3.4-5.0); Bilirubin,Direct 0.12 MG/DL (0.0-0.20); Bilirubin,Indirect 1.5 MG/DL (0.0-1.0); Bilirubin,Total 1.6 MG/DL (0.20-1.00); Total Protein 7.6 G/DL (6.4-8.2)
[2021-02-08 06:16] LABS: Eosinophils 1 % (0-10); Lymphocytes 23 % (20-55); Platelet Estimate Normal; Segmented Neutrophils 67 % (50-85); Total Cells Counted 100
[2021-02-08 06:17] LABS: Microcytosis 1+
[2021-02-08] MEDS: PANTOPRAZOLE 40 MG TABLET PO SCH (06:57)
[2021-02-08] MEDS: IPRATROPIUM 500 MCG/2.5 ML NEB RESP TX SCH ×2 (07:10→14:16)
[2021-02-08] MEDS: MONTELUKAST 10 MG TABLET PO SCH (08:45)
[2021-02-08] MEDS: GABAPENTIN 100 MG CAPSULE PO SCH ×3 (08:48→20:43)
[2021-02-08] MEDS: ALPRAZolam 0.5 MG TABLET PO SCH ×2 (08:49→20:39)
[2021-02-08] MEDS: LOSARTAN 25 MG TABLET PO SCH (08:50)
[2021-02-08] MEDS: carvediloL 3.125 MG TABLET PO SCH (08:50)
[2021-02-08] MEDS: FERROUS GLUCONATE 324 MG TABLET PO SCH ×2 (08:51→19:06)
[2021-02-08] MEDS: DIGOXIN 0.125 MG TABLET PO SCH (08:51)
[2021-02-08] MEDS: POTASSIUM CHLORIDE 10 MEQ TABLET PO SCH (08:51)
[2021-02-08] MEDS: OMEPRAZOLE ODT 20 MG TABLET PO SCH (15:57)
[2021-02-08] MEDS: ENOXAPARIN 40 MG/0.4 ML SYRINGE SUBCUT SCH (19:07)
[2021-02-08] MEDS: ATORVASTATIN 40 MG TABLET PO SCH (20:39)
[2021-02-08] MEDS: SODIUM BICARBONATE 650 MG TABLET PO SCH (20:40)
[2021-02-08] MEDS: SERTRALINE 25 MG TABLET PO SCH (20:40)
[2021-02-09] MEDS: IPRATROPIUM 500 MCG/2.5 ML NEB RESP TX SCH ×4 (00:22→23:19)
[2021-02-09] MEDS: ACETAMINOPHEN 325 MG TABLET PO PRN (00:33)
[2021-02-09 13:16] LABS: Calcium 8.9 MG/DL (8.5-10.1); Osmolality,Calculated 269.2 MOS/KG (273-304); Potassium 3.5 MMOL/L (3.5-5.1)
[2021-02-09 13:30] LABS: Basophils # 0.1 10*3/uL (0.0-0.2); Basophils % 0.5 % (0.0-0.8); Eosinophils # 0.3 10*3/uL (0.0-0.87); Eosinophils % 2.4 % (0.00-10.9); Hemoglobin 11.3 GM/DL (14.0-18.0); Immature Granulocytes % 4.8 %; Lymphocytes # 1.8 10*3/uL (1.4-4.0); Lymphocytes % 17.7 % (21.2-54.2); Mean Corpuscular HGB Conc 33.2 GM/DL (32-36); Mean Corpuscular Volume 87.2 FL (87-102); Mean Platelet Volume 10.5 FL (9.6-12.0); Monocytes % 8.6 % (1.7-12.7); Platelet Count 247 T/CUMM (130-400); White Blood Count 10.4 T/CUMM (4-12)
[2021-02-09] MEDS: ONDANSETRON 4 MG/2 ML VIAL IV PRN (15:14)
[2021-02-09] MEDS: POTASSIUM CHLORIDE 10 MEQ TABLET PO SCH (15:20)
[2021-02-09] MEDS: carvediloL 3.125 MG TABLET PO SCH (15:20)
[2021-02-09] MEDS: FERROUS GLUCONATE 324 MG TABLET PO SCH ×2 (15:20→17:55)
[2021-02-09] MEDS: LOSARTAN 25 MG TABLET PO SCH (15:20)
[2021-02-09] MEDS: DIGOXIN 0.125 MG TABLET PO SCH (15:20)
[2021-02-09] MEDS: SODIUM BICARBONATE 650 MG TABLET PO SCH (15:21)
[2021-02-09] MEDS: FUROSEMIDE 40 MG TABLET PO SCH (15:27)
[2021-02-09] MEDS: MONTELUKAST 10 MG TABLET PO SCH (15:28)
[2021-02-09] MEDS: MEROPENEM 500 MG in SODIUM CHLORIDE 0.9% 100 ML IV SCH ×3 (15:28→17:57)
[2021-02-09] MEDS: GABAPENTIN 100 MG CAPSULE PO SCH ×2 (15:28→21:03)
[2021-02-09] MEDS: ALPRAZolam 0.5 MG TABLET PO SCH ×2 (15:28→21:03)
[2021-02-09] MEDS: OMEPRAZOLE ODT 20 MG TABLET PO SCH (15:28)
[2021-02-09 17:42] LABS: Basophils % 0.2 % (0.0-0.8); Eosinophils # 0.2 10*3/uL (0.0-0.87); Eosinophils % 1.6 % (0.00-10.9); Hematocrit 34.9 VOL% (42.0-52.0); Immature Granulocytes % 4.1 %; Immature Granulocytes Absolute 0.52 #; Lymphocytes # 1.8 10*3/uL (1.4-4.0); Lymphocytes % 14.4 % (21.2-54.2); Mean Corpuscular HGB Conc 34.4 GM/DL (32-36); Mean Corpuscular Volume 84.1 FL (87-102); Monocytes % 7.2 % (1.7-12.7); Neutrophils % 72.5 % (38.7-73.9); Platelet Count 286 T/CUMM (130-400); Red Blood Count 4.15 MC/CUMM (3.8-5.5); Red Cell Distribution Width 13.9 % (9.3-17.3); White Blood Count 12.7 T/CUMM (4-12)
[2021-02-09] MEDS: ENOXAPARIN 40 MG/0.4 ML SYRINGE SUBCUT SCH (17:55)
[2021-02-09 19:25] LABS: Eosinophils 3 % (0-10); Hypochromasia Slight; Lymphocytes 15 % (20-55); Metamyelocytes 1 %; Microcytosis Slight; Myelocytes 1 %; Platelet Estimate Normal; Segmented Neutrophils 77 % (50-85); Total Cells Counted 100
[2021-02-09] MEDS: SERTRALINE 25 MG TABLET PO SCH (21:03)
[2021-02-09] MEDS: ATORVASTATIN 40 MG TABLET PO SCH (21:03)
[2021-02-10] MEDS: ACETAMINOPHEN 325 MG TABLET PO PRN ×2 (01:10→12:08)
[2021-02-10] MEDS: MEROPENEM 500 MG in SODIUM CHLORIDE 0.9% 100 ML IV SCH ×3 (03:33→18:19)
[2021-02-10 06:35] LABS: Basophils # 0.1 10*3/uL (0.0-0.2); Basophils % 0.5 % (0.0-0.8); Eosinophils # 0.2 10*3/uL (0.0-0.87); Eosinophils % 1.7 % (0.00-10.9); Hematocrit 33.8 VOL% (42.0-52.0); Hemoglobin 11.4 GM/DL (14.0-18.0); Immature Granulocytes % 4.2 %; Immature Granulocytes Absolute 0.49 #; Lymphocytes # 1.9 10*3/uL (1.4-4.0); Lymphocytes % 16.3 % (21.2-54.2); Mean Corpuscular HGB Conc 33.7 GM/DL (32-36); Mean Corpuscular Volume 85.1 FL (87-102); Mean Platelet Volume 10.3 FL (9.6-12.0); Monocytes % 7.7 % (1.7-12.7); Neutrophils % 69.6 % (38.7-73.9); Platelet Count 254 T/CUMM (130-400); Red Blood Count 3.97 MC/CUMM (3.8-5.5); Red Cell Distribution Width 13.9 % (9.3-17.3); White Blood Count 11.7 T/CUMM (4-12)
[2021-02-10 06:55] LABS: Calcium 8.8 MG/DL (8.5-10.1); Osmolality,Calculated 263.7 MOS/KG (273-304); Potassium 3.2 MMOL/L (3.5-5.1)
[2021-02-10] MEDS: IPRATROPIUM 500 MCG/2.5 ML NEB RESP TX SCH ×2 (07:32→15:20)
[2021-02-10] MEDS: DIGOXIN 0.125 MG TABLET PO SCH (10:02)
[2021-02-10] MEDS: GABAPENTIN 100 MG CAPSULE PO SCH ×3 (10:02→21:15)
[2021-02-10] MEDS: carvediloL 3.125 MG TABLET PO SCH (10:02)
[2021-02-10] MEDS: POTASSIUM CHLORIDE 10 MEQ TABLET PO SCH (10:02)
[2021-02-10] MEDS: LOSARTAN 25 MG TABLET PO SCH (10:02)
[2021-02-10] MEDS: FERROUS GLUCONATE 324 MG TABLET PO SCH ×2 (10:02→16:23)
[2021-02-10] MEDS: ALPRAZolam 0.5 MG TABLET PO SCH ×2 (10:02→21:15)
[2021-02-10] MEDS: OMEPRAZOLE ODT 20 MG TABLET PO SCH (10:03)
[2021-02-10] MEDS: MONTELUKAST 10 MG TABLET PO SCH (10:03)
[2021-02-10] MEDS: FUROSEMIDE 40 MG TABLET PO SCH (10:03)
[2021-02-10] MEDS ORDERED: POTASSIUM CHLORIDE 10 MEQ TABLET PO ONE (10:30)
[2021-02-10] MEDS ORDERED: PANTOPRAZOLE 40 MG TABLET PO SCH (11:00)
[2021-02-10] MEDS: PANTOPRAZOLE 40 MG TABLET PO SCH (16:23)
[2021-02-10] MEDS: SUCRALFATE 1 GM TABLET PO SCH ×2 (16:24→21:15)
[2021-02-10] MEDS: ATORVASTATIN 40 MG TABLET PO SCH (21:15)
[2021-02-10] MEDS: SERTRALINE 25 MG TABLET PO SCH (21:15)
[2021-02-11] MEDS: ACETAMINOPHEN 325 MG TABLET PO PRN ×2 (00:21→16:46)
[2021-02-11] MEDS: IPRATROPIUM 500 MCG/2.5 ML NEB RESP TX SCH ×3 (01:12→16:39)
[2021-02-11] MEDS: MEROPENEM 500 MG in SODIUM CHLORIDE 0.9% 100 ML IV SCH ×3 (03:30→19:13)
[2021-02-11 06:20] LABS: Basophils % 0.3 % (0.0-0.8); Eosinophils # 0.2 10*3/uL (0.0-0.87); Eosinophils % 1.4 % (0.00-10.9); Hematocrit 34.8 VOL% (42.0-52.0); Immature Granulocytes % 4.7 %; Immature Granulocytes Absolute 0.55 #; Lymphocytes # 1.9 10*3/uL (1.4-4.0); Lymphocytes % 16.1 % (21.2-54.2); Mean Corpuscular HGB Conc 34.5 GM/DL (32-36); Mean Corpuscular Volume 83.9 FL (87-102); Monocytes % 9.3 % (1.7-12.7); Neutrophils % 68.2 % (38.7-73.9); Platelet Count 270 T/CUMM (130-400); Red Blood Count 4.15 MC/CUMM (3.8-5.5); Red Cell Distribution Width 13.9 % (9.3-17.3); White Blood Count 11.8 T/CUMM (4-12)
[2021-02-11 06:38] LABS: Calcium 9.1 MG/DL (8.5-10.1); Osmolality,Calculated 256.9 MOS/KG (273-304); Potassium 3.6 MMOL/L (3.5-5.1)
[2021-02-11 06:49] LABS: Eosinophils 2 % (0-10); Hypochromasia Slight; Lymphocytes 21 % (20-55); Microcytosis Slight; Platelet Estimate Adequate; Segmented Neutrophils 72 % (50-85); Total Cells Counted 100
[2021-02-11] MEDS: FUROSEMIDE 40 MG TABLET PO SCH (08:59)
[2021-02-11] MEDS: SUCRALFATE 1 GM TABLET PO SCH ×4 (08:59→21:20)
[2021-02-11] MEDS: MONTELUKAST 10 MG TABLET PO SCH (08:59)
[2021-02-11] MEDS: FERROUS GLUCONATE 324 MG TABLET PO SCH ×2 (08:59→16:00)
[2021-02-11] MEDS: PANTOPRAZOLE 40 MG TABLET PO SCH ×2 (08:59→15:51)
[2021-02-11] MEDS: ALPRAZolam 0.5 MG TABLET PO SCH ×2 (08:59→21:20)
[2021-02-11] MEDS: GABAPENTIN 100 MG CAPSULE PO SCH ×3 (08:59→21:20)
[2021-02-11] MEDS: LOSARTAN 25 MG TABLET PO SCH (09:00)
[2021-02-11] MEDS: carvediloL 3.125 MG TABLET PO SCH (09:00)
[2021-02-11] MEDS: DIGOXIN 0.125 MG TABLET PO SCH (09:00)
[2021-02-11] MEDS: POTASSIUM CHLORIDE 10 MEQ TABLET PO SCH (09:00)
[2021-02-11 09:18] LABS: PT Patient Result 11.2 SECS (10.5-12.0)
[2021-02-11] MEDS: SODIUM CHLORIDE 0.9% 500 ML IV SCH (10:19)
[2021-02-11] MEDS: CALCIUM CARBONATE CHEW 500 MG TABLET PO PRN ×3 (11:36→21:19)
[2021-02-11 15:30] LABS: Glucose,CSF 54 MG/DL (40-70)
[2021-02-11 15:42] LABS: Lymphocytes,CSF 55 %; Monocytes,CSF 45 %; Red Blood Cell,CSF 5 C/CUMM; White Blood Cell,CSF 5 C/CUMM
[2021-02-11 15:43] LABS: Appearance,CSF Clear
[2021-02-11] MEDS: SERTRALINE 25 MG TABLET PO SCH (21:20)
[2021-02-11] MEDS: ATORVASTATIN 40 MG TABLET PO SCH (21:20)
[2021-02-12] MEDS: IPRATROPIUM 500 MCG/2.5 ML NEB RESP TX SCH ×4 (01:04→23:51)
[2021-02-12] MEDS: MEROPENEM 500 MG in SODIUM CHLORIDE 0.9% 100 ML IV SCH ×3 (02:31→18:13)
[2021-02-12] MEDS: ACETAMINOPHEN 325 MG TABLET PO PRN (05:04)
[2021-02-12 06:14] LABS: Basophils # 0.1 10*3/uL (0.0-0.2); Basophils % 0.5 % (0.0-0.8); Eosinophils # 0.2 10*3/uL (0.0-0.87); Eosinophils % 1.4 % (0.00-10.9); Hematocrit 36.9 VOL% (42.0-52.0); Hemoglobin 12.7 GM/DL (14.0-18.0); Immature Granulocytes % 4.1 %; Immature Granulocytes Absolute 0.49 #; Lymphocytes % 16.5 % (21.2-54.2); Mean Corpuscular HGB Conc 34.4 GM/DL (32-36); Mean Corpuscular Volume 83.7 FL (87-102); Monocytes % 9.2 % (1.7-12.7); Neutrophils % 68.3 % (38.7-73.9); Platelet Count 291 T/CUMM (130-400); Red Blood Count 4.41 MC/CUMM (3.8-5.5); Red Cell Distribution Width 14.2 % (9.3-17.3); White Blood Count 11.8 T/CUMM (4-12)
[2021-02-12] MEDS: CALCIUM CARBONATE CHEW 500 MG TABLET PO PRN (06:25)
[2021-02-12 06:27] LABS: Calcium 9.5 MG/DL (8.5-10.1); Osmolality,Calculated 262.5 MOS/KG (273-304); Potassium 3.7 MMOL/L (3.5-5.1)
[2021-02-12] MEDS ORDERED: COSYNTROPIN 0.25 MG VIAL IM ONE (07:00)
[2021-02-12] MEDS: ALUMINUM/MAGNES/SIMETH MAX STR 30 ML UDCUP PO PRN (07:31)
[2021-02-12] MEDS: POLYETHYLENE GLYCOL POWDER 17 GM PACK PO SCH ×2 (09:54→21:30)
[2021-02-12] MEDS: POTASSIUM CHLORIDE 10 MEQ TABLET PO SCH (09:54)
[2021-02-12] MEDS: PANTOPRAZOLE 40 MG TABLET PO SCH ×2 (09:54→16:03)
[2021-02-12] MEDS: GABAPENTIN 100 MG CAPSULE PO SCH ×3 (09:55→21:32)
[2021-02-12] MEDS: SUCRALFATE 1 GM TABLET PO SCH ×4 (09:55→21:33)
[2021-02-12] MEDS: carvediloL 3.125 MG TABLET PO SCH (09:55)
[2021-02-12] MEDS: ALPRAZolam 0.5 MG TABLET PO SCH ×2 (09:55→21:33)
[2021-02-12] MEDS: LOSARTAN 25 MG TABLET PO SCH (09:55)
[2021-02-12] MEDS: MONTELUKAST 10 MG TABLET PO SCH (09:55)
[2021-02-12] MEDS: DIGOXIN 0.125 MG TABLET PO SCH (09:55)
[2021-02-12] MEDS: FUROSEMIDE 40 MG TABLET PO SCH (09:55)
[2021-02-12] MEDS: SODIUM CHLORIDE 0.9% 500 ML IV SCH (11:11)
[2021-02-12 11:51] LABS: VDRL Spinal Fluid Negative (Negative)
[2021-02-12] MEDS: diphenhydrAMINE 50 MG/1 ML VIAL IV SCH (17:17)
[2021-02-12] MEDS: ACETAMINOPHEN 325 MG TABLET PO SCH (17:17)
[2021-02-12] MEDS: IMMUNE GLOBULIN 10% 40 GM in PREMIX 1 EACH IV SCH (18:40)
[2021-02-12] MEDS: ATORVASTATIN 40 MG TABLET PO SCH (21:32)
[2021-02-12] MEDS: SERTRALINE 25 MG TABLET PO SCH (21:33)
[2021-02-13] MEDS: MEROPENEM 500 MG in SODIUM CHLORIDE 0.9% 100 ML IV SCH ×3 (02:28→17:36)
[2021-02-13 06:20] LABS: Basophils % 0.4 % (0.0-0.8); Eosinophils % 0.1 % (0.00-10.9); Hematocrit 34.9 VOL% (42.0-52.0); Hemoglobin 11.8 GM/DL (14.0-18.0); Immature Granulocytes % 3.7 %; Immature Granulocytes Absolute 0.25 #; Lymphocytes # 0.8 10*3/uL (1.4-4.0); Lymphocytes % 11.5 % (21.2-54.2); Mean Corpuscular HGB Conc 33.8 GM/DL (32-36); Mean Corpuscular Volume 86.4 FL (87-102); Mean Platelet Volume 10.1 FL (9.6-12.0); Monocytes % 12.3 % (1.7-12.7); Platelet Count 229 T/CUMM (130-400); Red Blood Count 4.04 MC/CUMM (3.8-5.5); Red Cell Distribution Width 14.2 % (9.3-17.3); White Blood Count 6.8 T/CUMM (4-12)
[2021-02-13 06:52] LABS: Osmolality,Calculated 258.9 MOS/KG (273-304); Potassium 3.7 MMOL/L (3.5-5.1)
[2021-02-13] MEDS: IPRATROPIUM 500 MCG/2.5 ML NEB RESP TX SCH ×2 (06:55→13:45)
[2021-02-13 07:03] LABS: Folate 15.78 NG/ML (5.38-24.0)
[2021-02-13] MEDS ORDERED: metroNIDAZOLE 500 MG TABLET PO SCH (09:00)
[2021-02-13] MEDS ORDERED: OXYMETAZOLINE 0.05% NASAL SPRAY 15 ML BOTTLE BOTH NARES PRN (09:36)
[2021-02-13] MEDS: SUCRALFATE 1 GM TABLET PO SCH ×4 (10:41→23:00)
[2021-02-13] MEDS: POTASSIUM CHLORIDE 10 MEQ TABLET PO SCH (10:41)
[2021-02-13] MEDS: ALPRAZolam 0.5 MG TABLET PO SCH ×2 (10:41→23:00)
[2021-02-13] MEDS: GABAPENTIN 100 MG CAPSULE PO SCH ×3 (10:42→23:01)
[2021-02-13] MEDS: PANTOPRAZOLE 40 MG TABLET PO SCH ×2 (10:42→15:32)
[2021-02-13] MEDS: DIGOXIN 0.125 MG TABLET PO SCH (10:42)
[2021-02-13] MEDS: LOSARTAN 25 MG TABLET PO SCH (10:42)
[2021-02-13] MEDS: POLYETHYLENE GLYCOL POWDER 17 GM PACK PO SCH ×2 (10:42→23:00)
[2021-02-13] MEDS: MONTELUKAST 10 MG TABLET PO SCH (10:42)
[2021-02-13] MEDS: FUROSEMIDE 40 MG TABLET PO SCH (10:42)
[2021-02-13] MEDS: carvediloL 3.125 MG TABLET PO SCH (10:42)
[2021-02-13] MEDS: diphenhydrAMINE 50 MG/1 ML VIAL IV SCH ×2 (11:33→21:28)
[2021-02-13] MEDS: SODIUM CHLORIDE 0.9% 500 ML IV SCH (11:34)
[2021-02-13] MEDS: IMMUNE GLOBULIN 10% 40 GM in PREMIX 1 EACH IV SCH ×2 (11:34→22:46)
[2021-02-13] MEDS: ACETAMINOPHEN 325 MG TABLET PO SCH ×2 (11:34→21:29)
[2021-02-13] MEDS: ALUMINUM/MAGNES/SIMETH MAX STR 30 ML UDCUP PO PRN (14:40)
[2021-02-13] MEDS: ACETAMINOPHEN 325 MG TABLET PO PRN (14:42)
[2021-02-13 21:21] LABS: IgG Index, CSF 0.61 (<=0.85); IgG, CSF 16.8 mg/dL (<=8.1); IgG/Albumin Ratio, CSF 0.17 (<=0.21); Synthesis Rate, CSF 24.87 mg/24 h (<=12)
[2021-02-13] MEDS: SERTRALINE 25 MG TABLET PO SCH (23:01)
[2021-02-13] MEDS: ATORVASTATIN 40 MG TABLET PO SCH (23:01)
[2021-02-14] MEDS: IPRATROPIUM 500 MCG/2.5 ML NEB RESP TX SCH ×3 (00:27→15:25)
[2021-02-14] MEDS: MEROPENEM 500 MG in SODIUM CHLORIDE 0.9% 100 ML IV SCH ×3 (03:33→17:48)
[2021-02-14 04:25] LABS: Basophils % 0.8 % (0.0-0.8); Eosinophils # 0.1 10*3/uL (0.0-0.87); Eosinophils % 2.6 % (0.00-10.9); Hematocrit 35.7 VOL% (42.0-52.0); Hemoglobin 11.8 GM/DL (14.0-18.0); Immature Granulocytes % 4.3 %; Immature Granulocytes Absolute 0.21 #; Lymphocytes # 1.3 10*3/uL (1.4-4.0); Lymphocytes % 25.4 % (21.2-54.2); Mean Corpuscular HGB Conc 33.1 GM/DL (32-36); Mean Corpuscular Volume 86.7 FL (87-102); Monocytes % 16.5 % (1.7-12.7); Neutrophils % 50.4 % (38.7-73.9); Platelet Count 231 T/CUMM (130-400); Red Blood Count 4.12 MC/CUMM (3.8-5.5); Red Cell Distribution Width 14.1 % (9.3-17.3); White Blood Count 4.9 T/CUMM (4-12)
[2021-02-14 04:44] LABS: Calcium 9.1 MG/DL (8.5-10.1); Osmolality,Calculated 268.2 MOS/KG (273-304); Potassium 3.6 MMOL/L (3.5-5.1)
[2021-02-14 05:07] LABS: Eosinophils 6 % (0-10); Lymphocytes 31 % (20-55); Platelet Estimate Normal; Segmented Neutrophils 54 % (50-85); Total Cells Counted 100
[2021-02-14] MEDS ORDERED: propofoL 200 MG/20 ML VIAL IV ONE (06:53)
[2021-02-14] MEDS ORDERED: LIDOCAINE 2% 5 ML VIAL ONE (06:53)
[2021-02-14] MEDS: SODIUM CHLORIDE 0.9% 500 ML IV SCH (07:35)
[2021-02-14] MEDS: MONTELUKAST 10 MG TABLET PO SCH (10:38)
[2021-02-14] MEDS: POTASSIUM CHLORIDE 10 MEQ TABLET PO SCH (10:38)
[2021-02-14] MEDS: PANTOPRAZOLE 40 MG TABLET PO SCH ×2 (10:38→17:48)
[2021-02-14] MEDS: LOSARTAN 25 MG TABLET PO SCH (10:39)
[2021-02-14] MEDS: FUROSEMIDE 40 MG TABLET PO SCH (10:39)
[2021-02-14] MEDS: DIGOXIN 0.125 MG TABLET PO SCH (10:39)
[2021-02-14] MEDS: SUCRALFATE 1 GM TABLET PO SCH ×4 (10:39→22:45)
[2021-02-14] MEDS: carvediloL 3.125 MG TABLET PO SCH (10:39)
[2021-02-14] MEDS: GABAPENTIN 100 MG CAPSULE PO SCH ×3 (10:39→22:45)
[2021-02-14] MEDS: POLYETHYLENE GLYCOL POWDER 17 GM PACK PO SCH ×2 (10:40→22:49)
[2021-02-14 10:41] LABS: M. Tuberculosis PCR Result Negative (Negative); M. Tuberculosis PCR Source CSF
[2021-02-14] MEDS: ALPRAZolam 0.5 MG TABLET PO SCH ×2 (14:00→22:46)
[2021-02-14] MEDS: ALUMINUM/MAGNES/SIMETH MAX STR 30 ML UDCUP PO PRN (14:03)
[2021-02-14] MEDS: ENOXAPARIN 40 MG/0.4 ML SYRINGE SUBCUT SCH (17:51)
[2021-02-14] MEDS: ACETAMINOPHEN 325 MG TABLET PO SCH (22:45)
[2021-02-14] MEDS: ATORVASTATIN 40 MG TABLET PO SCH (22:45)
[2021-02-14] MEDS: diphenhydrAMINE 50 MG/1 ML VIAL IV SCH (22:49)
[2021-02-14] MEDS: SERTRALINE 25 MG TABLET PO SCH (22:50)
[2021-02-14] MEDS: IMMUNE GLOBULIN 10% 40 GM in PREMIX 1 EACH IV SCH (23:00)
[2021-02-15] MEDS: IPRATROPIUM 500 MCG/2.5 ML NEB RESP TX SCH ×3 (00:23→14:33)
[2021-02-15] MEDS: MEROPENEM 500 MG in SODIUM CHLORIDE 0.9% 100 ML IV SCH ×3 (03:06→17:30)
[2021-02-15] MEDS: ALUMINUM/MAGNES/SIMETH MAX STR 30 ML UDCUP PO PRN (03:38)
[2021-02-15 06:12] LABS: Basophils % 0.7 % (0.0-0.8); Eosinophils # 0.1 10*3/uL (0.0-0.87); Hematocrit 33.8 VOL% (42.0-52.0); Hemoglobin 11.2 GM/DL (14.0-18.0); Immature Granulocytes % 2.5 %; Lymphocytes # 1.6 10*3/uL (1.4-4.0); Lymphocytes % 38.9 % (21.2-54.2); Mean Corpuscular HGB Conc 33.1 GM/DL (32-36); Mean Corpuscular Volume 87.1 FL (87-102); Monocytes % 21.7 % (1.7-12.7); Neutrophils % 33.2 % (38.7-73.9); Platelet Count 214 T/CUMM (130-400); Red Blood Count 3.88 MC/CUMM (3.8-5.5); White Blood Count 4.1 T/CUMM (4-12)
[2021-02-15 06:28] LABS: Calcium 8.8 MG/DL (8.5-10.1); Osmolality,Calculated 266.4 MOS/KG (273-304); Potassium 3.8 MMOL/L (3.5-5.1)
[2021-02-15 06:43] LABS: Atypical Lymphocytes Few; Band Neutrophils 1 % (0-10); Eosinophils 5 % (0-10); Hypochromasia Slight; Lymphocytes 43 % (20-55); Microcytosis Slight; Platelet Estimate Adequate; Segmented Neutrophils 32 % (50-85); Total Cells Counted 100
[2021-02-15] MEDS: PANTOPRAZOLE 40 MG TABLET PO SCH ×2 (09:47→16:19)
[2021-02-15] MEDS: ALPRAZolam 0.5 MG TABLET PO SCH ×2 (09:48→22:17)
[2021-02-15] MEDS: POTASSIUM CHLORIDE 10 MEQ TABLET PO SCH (09:48)
[2021-02-15] MEDS: DIGOXIN 0.125 MG TABLET PO SCH (09:49)
[2021-02-15] MEDS: GABAPENTIN 100 MG CAPSULE PO SCH ×3 (09:49→22:18)
[2021-02-15] MEDS: FERROUS GLUCONATE 324 MG TABLET PO SCH ×2 (09:49→16:19)
[2021-02-15] MEDS: SUCRALFATE 1 GM TABLET PO SCH ×4 (09:49→22:18)
[2021-02-15] MEDS: MONTELUKAST 10 MG TABLET PO SCH (09:49)
[2021-02-15] MEDS: FUROSEMIDE 40 MG TABLET PO SCH (09:49)
[2021-02-15] MEDS: LOSARTAN 25 MG TABLET PO SCH (09:50)
[2021-02-15] MEDS: POLYETHYLENE GLYCOL POWDER 17 GM PACK PO SCH ×2 (09:50→22:18)
[2021-02-15] MEDS: carvediloL 3.125 MG TABLET PO SCH (09:54)
[2021-02-15] MEDS: SODIUM CHLORIDE 0.9% 500 ML IV SCH (12:15)
[2021-02-15] MEDS: ENOXAPARIN 40 MG/0.4 ML SYRINGE SUBCUT SCH (17:30)
[2021-02-15] MEDS: diphenhydrAMINE 50 MG/1 ML VIAL IV SCH (22:17)
[2021-02-15] MEDS: SERTRALINE 25 MG TABLET PO SCH (22:17)
[2021-02-15] MEDS: ATORVASTATIN 40 MG TABLET PO SCH (22:18)
[2021-02-15] MEDS: ACETAMINOPHEN 325 MG TABLET PO SCH (22:18)
[2021-02-15] MEDS: IMMUNE GLOBULIN 10% 40 GM in PREMIX 1 EACH IV SCH (22:18)
[2021-02-16] MEDS: IPRATROPIUM 500 MCG/2.5 ML NEB RESP TX SCH ×4 (00:58→23:00)
[2021-02-16] MEDS: MEROPENEM 500 MG in SODIUM CHLORIDE 0.9% 100 ML IV SCH ×3 (03:48→18:05)
[2021-02-16] MEDS: ALUMINUM/MAGNES/SIMETH MAX STR 30 ML UDCUP PO PRN ×2 (05:53→09:56)
[2021-02-16 06:02] LABS: Basophils % 0.8 % (0.0-0.8); Eosinophils # 0.1 10*3/uL (0.0-0.87); Eosinophils % 2.6 % (0.00-10.9); Hematocrit 35.8 VOL% (42.0-52.0); Hemoglobin 11.8 GM/DL (14.0-18.0); Immature Granulocytes % 1.7 %; Immature Granulocytes Absolute 0.09 #; Lymphocytes # 1.8 10*3/uL (1.4-4.0); Lymphocytes % 34.2 % (21.2-54.2); Mean Corpuscular Volume 87.1 FL (87-102); Mean Platelet Volume 10.3 FL (9.6-12.0); Monocytes % 18.5 % (1.7-12.7); Neutrophils % 42.2 % (38.7-73.9); Platelet Count 248 T/CUMM (130-400); Red Blood Count 4.11 MC/CUMM (3.8-5.5); Red Cell Distribution Width 13.9 % (9.3-17.3); White Blood Count 5.3 T/CUMM (4-12)
[2021-02-16 06:24] LABS: Calcium 8.6 MG/DL (8.5-10.1); Osmolality,Calculated 263.7 MOS/KG (273-304); Potassium 3.8 MMOL/L (3.5-5.1)
[2021-02-16 06:33] LABS: Band Neutrophils 1 % (0-10); Eosinophils 1 % (0-10); Lymphocytes 36 % (20-55); Nucleated Red Blood Cells 1 (0-5); Platelet Estimate Adequate; Segmented Neutrophils 49 % (50-85); Total Cells Counted 100
[2021-02-16 06:34] LABS: Hypochromasia Slight; Microcytosis Slight
[2021-02-16 06:35] LABS: Atypical Lymphocytes Few
[2021-02-16] MEDS: SODIUM CHLORIDE 0.9% 500 ML IV SCH (07:28)
[2021-02-16] MEDS: SUCRALFATE 1 GM TABLET PO SCH ×4 (08:20→22:12)
[2021-02-16] MEDS: ALPRAZolam 0.5 MG TABLET PO SCH ×2 (08:20→22:13)
[2021-02-16] MEDS: MONTELUKAST 10 MG TABLET PO SCH (08:20)
[2021-02-16] MEDS: carvediloL 3.125 MG TABLET PO SCH (08:20)
[2021-02-16] MEDS: GABAPENTIN 100 MG CAPSULE PO SCH ×3 (08:20→22:12)
[2021-02-16] MEDS: POLYETHYLENE GLYCOL POWDER 17 GM PACK PO SCH ×2 (08:20→23:44)
[2021-02-16] MEDS: PANTOPRAZOLE 40 MG TABLET PO SCH ×2 (08:20→16:08)
[2021-02-16] MEDS: FERROUS GLUCONATE 324 MG TABLET PO SCH ×2 (08:21→16:08)
[2021-02-16] MEDS: FUROSEMIDE 40 MG TABLET PO SCH (08:21)
[2021-02-16] MEDS: DIGOXIN 0.125 MG TABLET PO SCH (08:21)
[2021-02-16] MEDS: LOSARTAN 25 MG TABLET PO SCH (08:21)
[2021-02-16] MEDS: POTASSIUM CHLORIDE 10 MEQ TABLET PO SCH (08:21)
[2021-02-16] MEDS: ENOXAPARIN 40 MG/0.4 ML SYRINGE SUBCUT SCH (18:05)
[2021-02-16] MEDS ORDERED: IMMUNE GLOBULIN 10% 40 GM in PREMIX 1 EACH IV SCH (21:00)
[2021-02-16] MEDS: diphenhydrAMINE 50 MG/1 ML VIAL IV SCH (22:12)
[2021-02-16] MEDS: ACETAMINOPHEN 325 MG TABLET PO SCH (22:12)
[2021-02-16] MEDS: SERTRALINE 25 MG TABLET PO SCH (22:13)
[2021-02-16] MEDS: ATORVASTATIN 40 MG TABLET PO SCH (22:13)
[2021-02-16] MEDS: IMMUNE GLOBULIN 10% 40 GM in PREMIX 1 EACH IV SCH (22:21)
[2021-02-17] MEDS: MEROPENEM 500 MG in SODIUM CHLORIDE 0.9% 100 ML IV SCH ×3 (03:53→18:28)
[2021-02-17 07:05] LABS: Basophils # 0.1 10*3/uL (0.0-0.2); Basophils % 0.9 % (0.0-0.8); Eosinophils # 0.1 10*3/uL (0.0-0.87); Eosinophils % 2.1 % (0.00-10.9); Hematocrit 37.2 VOL% (42.0-52.0); Hemoglobin 12.2 GM/DL (14.0-18.0); Immature Granulocytes % 1.8 %; Immature Granulocytes Absolute 0.12 #; Lymphocytes % 28.9 % (21.2-54.2); Mean Corpuscular HGB Conc 32.8 GM/DL (32-36); Mean Corpuscular Volume 86.9 FL (87-102); Mean Platelet Volume 9.9 FL (9.6-12.0); Monocytes % 12.7 % (1.7-12.7); Neutrophils % 53.6 % (38.7-73.9); Platelet Count 278 T/CUMM (130-400); Red Blood Count 4.28 MC/CUMM (3.8-5.5); Red Cell Distribution Width 13.7 % (9.3-17.3); White Blood Count 6.8 T/CUMM (4-12)
[2021-02-17] MEDS: IPRATROPIUM 500 MCG/2.5 ML NEB RESP TX SCH ×2 (07:05→14:00)
[2021-02-17 07:22] LABS: Calcium 9.1 MG/DL (8.5-10.1); Osmolality,Calculated 260.8 MOS/KG (273-304); Potassium 3.7 MMOL/L (3.5-5.1)
[2021-02-17] MEDS ORDERED: FERRIC CARBOXYMALTOSE 750 MG in SODIUM CHLORIDE 0.9% 100 ML IV ONE (09:59)
[2021-02-17] MEDS: PANTOPRAZOLE 40 MG TABLET PO SCH ×2 (10:58→16:44)
[2021-02-17] MEDS: SUCRALFATE 1 GM TABLET PO SCH ×4 (10:58→20:56)
[2021-02-17] MEDS: LOSARTAN 25 MG TABLET PO SCH (10:58)
[2021-02-17] MEDS: carvediloL 3.125 MG TABLET PO SCH (10:58)
[2021-02-17] MEDS: SODIUM CHLORIDE 0.9% 500 ML IV SCH (10:58)
[2021-02-17] MEDS: FERROUS GLUCONATE 324 MG TABLET PO SCH ×2 (10:58→18:27)
[2021-02-17] MEDS: POTASSIUM CHLORIDE 10 MEQ TABLET PO SCH (10:59)
[2021-02-17] MEDS: GABAPENTIN 100 MG CAPSULE PO SCH (10:59)
[2021-02-17] MEDS: FUROSEMIDE 40 MG TABLET PO SCH (10:59)
[2021-02-17] MEDS: MONTELUKAST 10 MG TABLET PO SCH (10:59)
[2021-02-17] MEDS: ALPRAZolam 0.5 MG TABLET PO SCH ×2 (10:59→20:57)
[2021-02-17] MEDS: POLYETHYLENE GLYCOL POWDER 17 GM PACK PO SCH ×2 (10:59→20:59)
[2021-02-17] MEDS: DIGOXIN 0.125 MG TABLET PO SCH (10:59)
[2021-02-17] MEDS: ALUMINUM/MAGNES/SIMETH MAX STR 30 ML UDCUP PO PRN ×2 (11:30→23:08)
[2021-02-17] MEDS: FERRIC GLUCONATE COMPLEX 125 MG in SODIUM CHLORIDE 0.9% 100 ML IV SCH (12:26)
[2021-02-17] MEDS: GABAPENTIN 300 MG CAPSULE PO SCH ×2 (16:44→20:57)
[2021-02-17] MEDS: ENOXAPARIN 40 MG/0.4 ML SYRINGE SUBCUT SCH (18:28)
[2021-02-17] MEDS: SERTRALINE 25 MG TABLET PO SCH (20:56)
[2021-02-17] MEDS: ATORVASTATIN 40 MG TABLET PO SCH (20:56)
[2021-02-17] MEDS: ACETAMINOPHEN 325 MG TABLET PO PRN (20:57)
[2021-02-18] MEDS: IPRATROPIUM 500 MCG/2.5 ML NEB RESP TX SCH ×3 (00:10→14:00)
[2021-02-18] MEDS: ACETAMINOPHEN 325 MG TABLET PO PRN (02:01)
[2021-02-18] MEDS: MEROPENEM 500 MG in SODIUM CHLORIDE 0.9% 100 ML IV SCH ×2 (02:01→12:00)
[2021-02-18] MEDS: ALUMINUM/MAGNES/SIMETH MAX STR 30 ML UDCUP PO PRN ×2 (04:13→15:31)
[2021-02-18] MEDS: FERRIC GLUCONATE COMPLEX 125 MG in SODIUM CHLORIDE 0.9% 100 ML IV SCH (09:45)
[2021-02-18] MEDS: ONDANSETRON 4 MG/2 ML VIAL IV PRN (12:00)
[2021-02-18] MEDS: SODIUM CHLORIDE 0.9% 500 ML IV SCH (12:12)
[2021-02-18] MEDS: FERROUS GLUCONATE 324 MG TABLET PO SCH (12:13)
[2021-02-18] MEDS: SUCRALFATE 1 GM TABLET PO SCH ×2 (12:13→15:00)
[2021-02-18] MEDS: LOSARTAN 25 MG TABLET PO SCH ×2 (12:13→15:00)
[2021-02-18] MEDS: carvediloL 3.125 MG TABLET PO SCH ×2 (12:13→15:00)
[2021-02-18] MEDS: PANTOPRAZOLE 40 MG TABLET PO SCH (12:13)
[2021-02-18] MEDS: GABAPENTIN 300 MG CAPSULE PO SCH ×2 (12:14→15:00)
[2021-02-18] MEDS: POTASSIUM CHLORIDE 10 MEQ TABLET PO SCH ×2 (12:14→15:00)
[2021-02-18] MEDS: DIGOXIN 0.125 MG TABLET PO SCH ×2 (12:14→15:00)
[2021-02-18] MEDS: FUROSEMIDE 40 MG TABLET PO SCH ×2 (12:14→15:00)
[2021-02-18] MEDS: ALPRAZolam 0.5 MG TABLET PO SCH ×2 (12:14→15:00)
[2021-02-18] MEDS: POLYETHYLENE GLYCOL POWDER 17 GM PACK PO SCH (12:14)
[2021-02-18] MEDS: MONTELUKAST 10 MG TABLET PO SCH (12:14)
[2021-02-18 12:16] VITALS: BP 147/91
[2021-02-18 18:31] LABS: CDT Result Negative (Negative); CDT Specimen Source STOOL
== END 2021-02-18 15:30 | DRG 95 ==
LOC: N.EDINP 13:32 → N.ED 13:32 → N.EDINP 20:30 → N.3E 21:12 → SUATTDRO 02-06 07:40
PROVIDERS: ADMIT Internal Medicine; ATTEND Internal Medicine